=== PATIENT | male | born 1935 | race Caucasian/White ===

== ENCOUNTER 2017-04-25 11:49 | Inpatient (IN) | payer MEDICARE, BC ==
[~2017-04-25] VITALS: Ht 188 cm; Wt 103.9 kg
[2017-04-25] VITALS (7 sets, daily range): BP systolic 137–160; BP diastolic 50–64
[~2017-04-25 11:49] MED LIST: LIDOcaine 2% (20 mg/ml) 5ml cardiac syringe ONE; MAGNESIUM SULFATE 4 MEQ/ML (1gm/2ml) injection ONE; albumin (human) 25% 100 ML IV solution IV ONE; aminocaproic acid 250 MG/1 ML inj. ONE; calcium chloride 100 MG/1 ML inj IV ONE; heparin 1,000 units/ml 10ml inj ONE; heparin 10,000 units/1 ML INJ ONE; methylPREDNISolone sod. succ. 500mg inj ONE; papaverine 30 mg/ml 2ml inj. ONE; phenylephrine 10mg/ml inj IV ONE; potassium Cl 2 mEq/ml inj IV ONE; sodium bicarbonate (8.4%) 1 mEq/ml syringe ONE
[2017-04-25] MEDS ORDERED: dextrose 50%-water 50ml dispensing syringe IV PRN (13:00)
[2017-04-25] MEDS ORDERED: MESSAGE TO NURSING PO ONE ×4 (13:00)
[2017-04-25] MEDS ORDERED: heparin 10,000 units/1 ML INJ IV PRN (13:10)
[2017-04-25] MEDS ORDERED: heparin 10,000 units/1 ML INJ IV ONE (13:10)
[2017-04-25 13:56] LABS: ABG BASE EXCESS 0.1 mmol/L (-2.0-3.0); ABG HCO3 24.9 mmol/L (22.0-26.0); ABG OXYGEN SATURATION 98.1 % (95-98); ABG PCO2 (T) 39.6 mmHg (35.0-48.0); ABG PH (T) 7.413 (7.350-7.450); ALLEN'S TEST Positive; FCOHb 0.3 % (0.5-1.5); FLOW 3 L/min; FMetHb 0.1 % (0.3-1.12); FO2Hb 97.7 % (94-100); PATIENT TEMPERATURE 36.1; TOTAL HEMOGLOBIN 13.8 G/dl (14.0-18.0)
[2017-04-25] MEDS ORDERED: ALBU8.5H8 INH (13:59)
[2017-04-25] MEDS ORDERED: ASPI-1265 PO (13:59)
[2017-04-25] MEDS ORDERED: METO-411 PO (13:59)
[2017-04-25] MEDS ORDERED: SIMV20TA PO (13:59)
[2017-04-25] MEDS ORDERED: ALT5C PO (13:59)
[2017-04-25] MEDS ORDERED: ESOM40CA30 PO (13:59)
[2017-04-25] MEDS ORDERED: IBUP-1985 PO (13:59)
[2017-04-25] MEDS ORDERED: MOME17SP BOTHNARES (13:59)
[2017-04-25 14:29] LABS: BASOPHILS % (AUTO) 0.6 % (0-1); EOSINOPHILS # (AUTO) 0.2 X10'3 (0-0.9); EOSINOPHILS % (AUTO) 6.4 % (0-6); HEMATOCRIT 39.7 % (42.0-52.0); HEMOGLOBIN 13.4 g/dl (14.0-17.9); LYMPHOCYTES # (AUTO) 0.9 X10'3 (1.1-4.8); LYMPHOCYTES % (AUTO) 25.6 % (21-51); MEAN CORPUSCULAR HEMOGLOBIN 28.4 PG (27.0-31.0); MEAN CORPUSCULAR HGB CONC 33.8 % (33.0-36.5); MEAN CORPUSCULAR VOLUME 83.9 FL (78-98); MEAN PLATELET VOLUME 8.9 FL (7.4-10.4); MONOCYTES # (AUTO) 0.6 X10'3 (0-0.9); MONOCYTES % (AUTO) 19.2 % (2-12); NEUTROPHILS # (AUTO) 1.6 X10'3 (1.8-7.7); NEUTROPHILS % (AUTO) 48.2 % (42-75); PLATELET COUNT 122 X10'3 (140-440); RED BLOOD COUNT 4.73 X10'6 (4.70-6.10); RED CELL DISTRIBUTION WIDTH 14.4 % (11.5-14.5); WHITE BLOOD COUNT 3.4 X10'3 (4.5-11.0)
[2017-04-25 14:36] LABS: ALBUMIN 3.4 G/DL (3.4-5.0); ANION GAP 7 (8-16); BLOOD UREA NITROGEN 14 MG/DL (7-18); BUN/CREATININE RATIO 15.6 (5.4-32.0); CALCIUM 8.5 MG/DL (8.5-10.1); CHLORIDE 106 MMOL/L (99-107); GLUCOSE 85 MG/DL (70-104); POTASSIUM 4.4 MMOL/L (3.5-5.1); SODIUM 143 MMOL/L (135-145); TOTAL CARBON DIOXIDE 30.4 MMOL/L (24-32); eGFR 81 ML/MIN
[2017-04-25 14:42] LABS: HEMOGLOBIN A1C 5.3 % (4.5-6.2)
[2017-04-25 14:47] LABS: INR 1.2 INR
[2017-04-25 14:51] LABS: PARTIAL THROMBOPLASTIN TIME 122 SECONDS (22-32)
[2017-04-25] MEDS ORDERED: albuterol 2.5 MG/3 ML nebule ONE (14:59)
[2017-04-25] MEDS ORDERED: albuterol 2.5 MG/3 ML nebule NEB ONE (15:05)
[2017-04-25] MEDS: mupirocin 2% ointment 22GM NS SCH (21:02)
[2017-04-26] VITALS (19 sets, daily range): BP systolic 105–167; BP diastolic 30–71
[2017-04-26 03:13] LABS: BASOPHILS % (AUTO) 0.6 % (0-1); EOSINOPHILS # (AUTO) 0.2 X10'3 (0-0.9); HEMATOCRIT 38.2 % (42.0-52.0); HEMOGLOBIN 13.2 g/dl (14.0-17.9); LYMPHOCYTES % (AUTO) 23.1 % (21-51); MEAN CORPUSCULAR HGB CONC 34.6 % (33.0-36.5); MEAN CORPUSCULAR VOLUME 83.8 FL (78-98); MEAN PLATELET VOLUME 8.5 FL (7.4-10.4); MONOCYTES # (AUTO) 0.6 X10'3 (0-0.9); NEUTROPHILS # (AUTO) 2.4 X10'3 (1.8-7.7); NEUTROPHILS % (AUTO) 56.3 % (42-75); PLATELET COUNT 117 X10'3 (140-440); RED BLOOD COUNT 4.56 X10'6 (4.70-6.10); RED CELL DISTRIBUTION WIDTH 13.5 % (11.5-14.5); WHITE BLOOD COUNT 4.3 X10'3 (4.5-11.0)
[2017-04-26] MEDS ORDERED: cefazolin/dext.iso 2gm/50ml 50 ML IV ONE (05:30)
[2017-04-26] MEDS ORDERED: LORazepam 2 mg/ml vial IV ONE (05:30)
[2017-04-26] MEDS ORDERED: famotidine/PF 10 mg/ml inj IV ONE ×2 (05:30→07:10)
[2017-04-26] MEDS ORDERED: vancomycin/NS 1 GM ADD-VANTAGE 250 ML IV ONE (05:30)
[2017-04-26] MEDS: insulin Lispro (HumaLOG) vial - multi-dose SQ SCH ×4 (06:41→12:54)
[2017-04-26] MEDS ORDERED: BUPIVAcaine/PF 2.5 mg/ml (0.25%) 30ml vial ONE (07:00)
[2017-04-26] MEDS ORDERED: nitroGLYCERIN in D5W 50mg/250ml (Tridil) infusion IV ONE (07:00)
[2017-04-26] MEDS ORDERED: isoflurane 100ml inhalation liquid IH ONE (07:00)
[2017-04-26] MEDS ORDERED: SUFENTANIL CITRATE 50 MCG/ML 2ml ampule IV ONE (07:20)
[2017-04-26] MEDS ORDERED: LORazepam 2 mg/ml vial ONE (07:24)
[2017-04-26] MEDS ORDERED: propofol inj 20 ML IV ONE (07:25)
[2017-04-26] MEDS ORDERED: rocuronium 10mg/ml inj IV ONE ×3 (07:25→13:02)
[2017-04-26] MEDS ORDERED: heparin 10,000 units/1 ML INJ IR ONE (07:30)
[2017-04-26] MEDS ORDERED: papaverine 30 mg/ml 2ml inj. IA ONE (07:30)
[2017-04-26 08:25] LABS: ABG BASE EXCESS 1.5 mmol/L (-2.0-3.0); ABG OXYGEN SATURATION 92.2 % (95-98); ABG PCO2 40.7 mmHg (35.0-45.0); ABG PH 7.423 (7.350-7.450); CL (ABG) 105 mmol/L (99-107); FCOHb 0.3 % (0.5-1.5); FMetHb 0.3 % (0.3-1.12); FO2Hb 91.6 % (94-100); GLUCOSE (ABG) 92 mg/dl (70-105); K (ABG) 3.5 mmol/L (3.3-5.1); NA (ABG) 135 mmol/L (135-145); TOTAL HEMOGLOBIN 12.2 G/dl (14.0-18.0)
[2017-04-26 09:20] LABS: ABG BASE EXCESS 0.4 mmol/L (-2.0-3.0); ABG HCO3 24.7 mmol/L (22.0-26.0); ABG OXYGEN SATURATION 99.5 % (95-98); ABG PCO2 38.9 mmHg (35.0-45.0); ABG PH 7.421 (7.350-7.450); ABG PO2 327.8 mmHg (60.0-100.0); CL (ABG) 105 mmol/L (99-107); FCOHb 0.3 % (0.5-1.5); FMetHb 0.1 % (0.3-1.12); FO2Hb 99.1 % (94-100); GLUCOSE (ABG) 98 mg/dl (70-105); IONIZED CA (ABG) 1.09 mmol/L (1.03-1.32); K (ABG) 3.7 mmol/L (3.3-5.1); NA (ABG) 135 mmol/L (135-145); TOTAL HEMOGLOBIN 11.8 G/dl (14.0-18.0)
[2017-04-26 09:51] LABS: ABG BASE EXCESS 2.5 mmol/L (-2.0-3.0); ABG HCO3 27.2 mmol/L (22.0-26.0); ABG PCO2 42.8 mmHg (35.0-45.0); ABG PH 7.421 (7.350-7.450); ABG PO2 365.4 mmHg (60.0-100.0); CL (ABG) 106 mmol/L (99-107); FCOHb 0.2 % (0.5-1.5); FMetHb 0.6 % (0.3-1.12); FO2Hb 98.2 % (94-100); GLUCOSE (ABG) 96 mg/dl (70-105); IONIZED CA (ABG) 1.01 mmol/L (1.03-1.32); K (ABG) 4.9 mmol/L (3.3-5.1); NA (ABG) 134 mmol/L (135-145); TOTAL HEMOGLOBIN 9.8 G/dl (14.0-18.0)
[2017-04-26] MEDS ORDERED: MESSAGE TO NURSING PO ONE (10:00)
[2017-04-26 10:16] LABS: ABG BASE EXCESS VENOUS 1.3 mmol/L; ABG HCO3 VENOUS 26.6 mmol/L; ABG PCO2 VENOUS 45.2 mmHg; ABG PO2 VENOUS 52.4 mmHg; CL (ABG) 106 mmol/L (99-107); FCOHb VENOUS 0.3 %; FHHb VENOUS 12.3 %; FMetHb VENOUS 0.5 %; FO2Hb VENOUS 86.9 %; GLUCOSE (ABG) 124 mg/dl (70-105); IONIZED CA (ABG) 1.03 mmol/L (1.03-1.32); K (ABG) 4.6 mmol/L (3.3-5.1); NA (ABG) 135 mmol/L (135-145); TOTAL HEMOGLOBIN 10.4 G/dl (14.0-18.0)
[2017-04-26 10:21] LABS: ACT @ 1.70 U 313 SEC (193-297); ACT @ 2.84 U 462 SEC (260-420); BASELINE ACT 153 SEC (101-148); PATIENT WEIGHT 95.0k KG
[2017-04-26 11:11] LABS: ABG BASE EXCESS -2.2 mmol/L (-2.0-3.0); ABG HCO3 21.6 mmol/L (22.0-26.0); ABG PCO2 33.7 mmHg (35.0-45.0); ABG PH 7.425 (7.350-7.450); ABG PO2 240.7 mmHg (60.0-100.0); CL (ABG) 107 mmol/L (99-107); FCOHb 0.3 % (0.5-1.5); FMetHb 0.6 % (0.3-1.12); FO2Hb 98.1 % (94-100); GLUCOSE (ABG) 134 mg/dl (70-105); IONIZED CA (ABG) 1.06 mmol/L (1.03-1.32); K (ABG) 4.8 mmol/L (3.3-5.1); NA (ABG) 135 mmol/L (135-145); TOTAL HEMOGLOBIN 10.3 G/dl (14.0-18.0)
[2017-04-26 11:25] LABS: ABG BASE EXCESS -2.9 mmol/L (-2.0-3.0); ABG PCO2 38.6 mmHg (35.0-45.0); ABG PH 7.374 (7.350-7.450); ABG PO2 312.6 mmHg (60.0-100.0); CL (ABG) 104 mmol/L (99-107); FCOHb 0.3 % (0.5-1.5); FMetHb 0.8 % (0.3-1.12); FO2Hb 97.9 % (94-100); GLUCOSE (ABG) 124 mg/dl (70-105); IONIZED CA (ABG) 1.39 mmol/L (1.03-1.32); K (ABG) 4.8 mmol/L (3.3-5.1); NA (ABG) 132 mmol/L (135-145); TOTAL HEMOGLOBIN 9.6 G/dl (14.0-18.0)
[2017-04-26 12:16] LABS: ABG BASE EXCESS -1.9 mmol/L (-2.0-3.0); ABG HCO3 21.8 mmol/L (22.0-26.0); ABG OXYGEN SATURATION 98.4 % (95-98); ABG PCO2 33.3 mmHg (35.0-45.0); ABG PH 7.433 (7.350-7.450); ABG PO2 160.6 mmHg (60.0-100.0); CL (ABG) 107 mmol/L (99-107); FCOHb 0.3 % (0.5-1.5); FMetHb 0.7 % (0.3-1.12); FO2Hb 97.4 % (94-100); GLUCOSE (ABG) 122 mg/dl (70-105); IONIZED CA (ABG) 1.17 mmol/L (1.03-1.32); K (ABG) 4.2 mmol/L (3.3-5.1); NA (ABG) 136 mmol/L (135-145); TOTAL HEMOGLOBIN 10.7 G/dl (14.0-18.0)
[2017-04-26] MEDS: mupirocin 2% ointment 22GM NS SCH ×3 (12:30→19:28)
[2017-04-26] MEDS: insulin regular, human inj. 100 UNITS in normal saline 100ml IV soln 100 ML IV SCH ×2 (12:30)
[2017-04-26] MEDS ORDERED: niCARDipine/sod cl 20mg/200ml 200 ML IV PRN (13:05)
[2017-04-26] MEDS ORDERED: sodium phosphate inj. 15 MMOL in dextrose 5%-water 150 ML IV PRN (13:05)
[2017-04-26] MEDS ORDERED: magnesium 2GM in 50ml NS 50 ML IV PRN (13:05)
[2017-04-26] MEDS ORDERED: sodium phosphate inj. 30 MMOL in dextrose 5%-water 250 ML IV PRN (13:05)
[2017-04-26] MEDS ORDERED: potassium Cl 20mEq/100mL bag 100 ML IV PRN ×2 (13:05)
[2017-04-26] MEDS ORDERED: Neutra Phos packet PO PRN (13:05)
[2017-04-26] MEDS ORDERED: insulin regular, human inj. 100 UNITS in normal saline 100ml IV soln 100 ML IV SCH ×2 (13:05)
[2017-04-26] MEDS ORDERED: dextrose 50%-water 50ml dispensing syringe IV PRN (13:05)
[2017-04-26] MEDS ORDERED: HYDROcodone/acetaminophen 10/325mg tab PO PRN (13:05)
[2017-04-26] MEDS ORDERED: nitroGLYCERIN-Tridil 50MG/D5W 250 ML IV PRN (13:05)
[2017-04-26] MEDS ORDERED: magnesium hydroxide 30ml (MOM) UD suspension PO PRN (13:05)
[2017-04-26] MEDS ORDERED: DOPamine 400mg/D5W 250ml 250 ML IV PRN (13:05)
[2017-04-26] MEDS ORDERED: metoclopramide 5 mg/ml inj IV PRN (13:05)
[2017-04-26] MEDS ORDERED: normal saline 250ml IV soln 250 ML IV PRN (13:05)
[2017-04-26] MEDS ORDERED: ondansetron/PF 4mg/2ml inj IV PRN (13:05)
[2017-04-26] MEDS ORDERED: acetaminophen 325mg tablet PO PRN (13:05)
[2017-04-26 13:30] LABS: ABG BASE EXCESS -2.5 mmol/L (-2.0-3.0); ABG HCO3 22.3 mmol/L (22.0-26.0); ABG PCO2 (T) 37.7 mmHg (35.0-48.0); ABG PH (T) 7.387 (7.350-7.450); ABG PO2 (T) 126.8 mmHg (83-108); FCOHb 0.3 % (0.5-1.5); FMetHb 0.3 % (0.3-1.12); FO2Hb 97.4 % (94-100); MINUTE VOLUME 8 L/min; PATIENT TEMPERATURE 36.5; PEEP 5 cm H2O; RESPIRATORY RATE 12 b/min; RESPIRATORY RATE (OBSERVED) 12 b/min; TIDAL VOLUME 650 mL; TOTAL HEMOGLOBIN 12.1 G/dl (14.0-18.0)
[2017-04-26 13:49] LABS: BASOPHILS % (AUTO) 0.1 % (0-1); EOSINOPHILS # (AUTO) 0.1 X10'3 (0-0.9); EOSINOPHILS % (AUTO) 1.9 % (0-6); HEMATOCRIT 32.9 % (42.0-52.0); HEMOGLOBIN 11.2 g/dl (14.0-17.9); LYMPHOCYTES # (AUTO) 0.3 X10'3 (1.1-4.8); LYMPHOCYTES % (AUTO) 4.6 % (21-51); MEAN CORPUSCULAR HEMOGLOBIN 28.8 PG (27.0-31.0); MEAN CORPUSCULAR HGB CONC 34.1 % (33.0-36.5); MEAN CORPUSCULAR VOLUME 84.4 FL (78-98); MEAN PLATELET VOLUME 8.6 FL (7.4-10.4); MONOCYTES # (AUTO) 0.3 X10'3 (0-0.9); MONOCYTES % (AUTO) 3.6 % (2-12); NEUTROPHILS # (AUTO) 6.3 X10'3 (1.8-7.7); NEUTROPHILS % (AUTO) 89.8 % (42-75); PLATELET COUNT 87 X10'3 (140-440); RED BLOOD COUNT 3.89 X10'6 (4.70-6.10); RED CELL DISTRIBUTION WIDTH 13.8 % (11.5-14.5)
[2017-04-26 14:02] LABS: INR 1.2 INR; PARTIAL THROMBOPLASTIN TIME 30 SECONDS (22-32); PROTHROMBIN TIME 12.3 SECONDS (9.0-12.0)
[2017-04-26 14:06] LABS: ALANINE AMINOTRANSFERASE 20 U/L (12-78); ALBUMIN 2.7 G/DL (3.4-5.0); ALBUMIN/GLOBULIN RATIO 1.5 (1.1-1.5); ALKALINE PHOSPHATASE 32 IU/L (46-116); ANION GAP 10 (8-16); ASPARTATE AMINO TRANSFERASE 47 U/L (10-37); BLOOD UREA NITROGEN 14 MG/DL (7-18); BUN/CREATININE RATIO 16.5 (5.4-32.0); CALCIUM 7.8 MG/DL (8.5-10.1); CHLORIDE 108 MMOL/L (99-107); CREATININE 0.85 MG/DL (0.60-1.10); GLUCOSE 119 MG/DL (70-104); MAGNESIUM 2.8 MG/DL (1.5-2.4); PHOSPHORUS 3.1 MG/DL (2.3-4.5); POTASSIUM 4.1 MMOL/L (3.5-5.1); SODIUM 143 MMOL/L (135-145); TOTAL CARBON DIOXIDE 24.9 MMOL/L (24-32); TOTAL PROTEIN 4.5 G/DL (6.4-8.2); eGFR 87 ML/MIN
[2017-04-26] MEDS: sodium chloride 0.45% 1,000 ML IV SCH (14:10)
[2017-04-26] MEDS: albumin (Human) 5% 250ml 250 ML IV PRN ×3 (14:29→22:26)
[2017-04-26] MEDS: potassium Cl 20mEq/100mL bag 100 ML IV PRN ×2 (14:33→20:20)
[2017-04-26] MEDS: morphine 2 MG/ML inj. syringe IV PRN ×3 (14:37→17:36)
[2017-04-26 14:51] LABS: ACTIVATED CLOTTING TIME 147 SEC (101-148)
[2017-04-26] MEDS: cefazolin 1gm/NS 100mL 100 ML IV SCH (17:11)
[2017-04-26] MEDS ORDERED: insulin Lispro (HumaLOG) vial - multi-dose SQ SCH (18:00)
[2017-04-26 19:13] LABS: BASOPHILS % (AUTO) 0 % (0-1); EOSINOPHILS # (AUTO) 0.1 X10'3 (0-0.9); EOSINOPHILS % (AUTO) 1.2 % (0-6); HEMATOCRIT 30.3 % (42.0-52.0); HEMOGLOBIN 10.4 g/dl (14.0-17.9); LYMPHOCYTES # (AUTO) 0.2 X10'3 (1.1-4.8); LYMPHOCYTES % (AUTO) 2.9 % (21-51); MEAN CORPUSCULAR HEMOGLOBIN 28.7 PG (27.0-31.0); MEAN CORPUSCULAR HGB CONC 34.4 % (33.0-36.5); MEAN CORPUSCULAR VOLUME 83.4 FL (78-98); MONOCYTES # (AUTO) 0.3 X10'3 (0-0.9); MONOCYTES % (AUTO) 5.2 % (2-12); NEUTROPHILS % (AUTO) 90.7 % (42-75); PLATELET COUNT 87 X10'3 (140-440); RED BLOOD COUNT 3.63 X10'6 (4.70-6.10); RED CELL DISTRIBUTION WIDTH 13.9 % (11.5-14.5); WHITE BLOOD COUNT 6.6 X10'3 (4.5-11.0)
[2017-04-26] MEDS: docusate sod 100mg capsule PO SCH (19:21)
[2017-04-26 19:22] LABS: ALBUMIN 2.8 G/DL (3.4-5.0); ANION GAP 8 (8-16); BLOOD UREA NITROGEN 15 MG/DL (7-18); BUN/CREATININE RATIO 15.5 (5.4-32.0); CALCIUM 7.3 MG/DL (8.5-10.1); CHLORIDE 111 MMOL/L (99-107); CREATININE 0.97 MG/DL (0.60-1.10); GLUCOSE 137 MG/DL (70-104); POTASSIUM 4.3 MMOL/L (3.5-5.1); SODIUM 144 MMOL/L (135-145); TOTAL CARBON DIOXIDE 25.3 MMOL/L (24-32); eGFR 74 ML/MIN
[2017-04-26] MEDS: vancomycin/NS 1 GM ADD-VANTAGE 250 ML IV SCH (19:23)
[2017-04-26 23:55] LABS: ABG HCO3 19.4 mmol/L (22.0-26.0); ABG OXYGEN SATURATION 93.3 % (95-98); ABG PCO2 (T) 33.9 mmHg (35.0-48.0); ABG PH (T) 7.376 (7.350-7.450); ABG PO2 (T) 71.1 mmHg (83-108); FCOHb 0.3 % (0.5-1.5); FMetHb 0.2 % (0.3-1.12); FO2Hb 92.8 % (94-100); MINUTE VOLUME 9 L/min; PATIENT TEMPERATURE 37.1; PEEP 5 cm H2O; RESPIRATORY RATE 0 b/min; RESPIRATORY RATE (OBSERVED) 16 b/min; TIDAL VOLUME 608 mL
[2017-04-27] VITALS (24 sets, daily range): BP systolic 119–167; BP diastolic 40–64
[2017-04-27] MEDS: cefazolin 1gm/NS 100mL 100 ML IV SCH ×3 (00:09→16:17)
[2017-04-27] MEDS: morphine 2 MG/ML inj. syringe IV PRN ×2 (00:29→03:55)
[2017-04-27 03:17] LABS: BASOPHILS % (AUTO) 0 % (0-1); EOSINOPHILS # (AUTO) 0.1 X10'3 (0-0.9); HEMATOCRIT 28.6 % (42.0-52.0); HEMOGLOBIN 9.8 g/dl (14.0-17.9); LYMPHOCYTES # (AUTO) 0.2 X10'3 (1.1-4.8); MEAN CORPUSCULAR HGB CONC 34.2 % (33.0-36.5); MEAN CORPUSCULAR VOLUME 84.7 FL (78-98); MEAN PLATELET VOLUME 8.5 FL (7.4-10.4); MONOCYTES # (AUTO) 0.5 X10'3 (0-0.9); NEUTROPHILS # (AUTO) 6.8 X10'3 (1.8-7.7); PLATELET COUNT 91 X10'3 (140-440); RED BLOOD COUNT 3.38 X10'6 (4.70-6.10); RED CELL DISTRIBUTION WIDTH 14.3 % (11.5-14.5); WHITE BLOOD COUNT 7.7 X10'3 (4.5-11.0)
[2017-04-27 03:28] LABS: INR 1.1 INR; PARTIAL THROMBOPLASTIN TIME 29 SECONDS (22-32); PROTHROMBIN TIME 11.7 SECONDS (9.0-12.0)
[2017-04-27 03:31] LABS: ANION GAP 9 (8-16); CHLORIDE 110 MMOL/L (99-107); GLUCOSE 138 MG/DL (70-104); POTASSIUM 4.7 MMOL/L (3.5-5.1); SODIUM 143 MMOL/L (135-145); TOTAL CARBON DIOXIDE 24.2 MMOL/L (24-32)
[2017-04-27 03:32] LABS: ALANINE AMINOTRANSFERASE 21 U/L (12-78); ALBUMIN/GLOBULIN RATIO 1.7 (1.1-1.5); ALKALINE PHOSPHATASE 31 IU/L (46-116); ASPARTATE AMINO TRANSFERASE 42 U/L (10-37); BILIRUBIN,TOTAL 0.6 MG/DL (0.1-1.0); BLOOD UREA NITROGEN 16 MG/DL (7-18); BUN/CREATININE RATIO 17.4 (5.4-32.0); CALCIUM 7.6 MG/DL (8.5-10.1); CREATININE 0.92 MG/DL (0.60-1.10); MAGNESIUM 2.2 MG/DL (1.5-2.4); PHOSPHORUS 4.4 MG/DL (2.3-4.5); TOTAL PROTEIN 4.8 G/DL (6.4-8.2); eGFR 79 ML/MIN
[2017-04-27] MEDS ORDERED: albuterol 2.5 MG/3 ML nebule NEB PRN (05:20)
[2017-04-27] MEDS: insulin regular, human inj. 100 UNITS in normal saline 100ml IV soln 100 ML IV SCH ×2 (05:30)
[2017-04-27] MEDS ORDERED: famotidine 20mg tablet PO ONE (06:00)
[2017-04-27] MEDS ORDERED: aspirin 325mg tablet, delayed-release (Ecotrin) PO SCH (08:00)
[2017-04-27] MEDS: docusate sod 100mg capsule PO SCH ×2 (08:55→19:27)
[2017-04-27] MEDS: pantoprazole 40mg Tablet.DR PO SCH (08:55)
[2017-04-27] MEDS: atorvastatin 10mg tablet PO SCH (08:55)
[2017-04-27] MEDS: metoprolol tartrate 12.5mg (1/2 tablet) PO SCH ×2 (08:56→19:28)
[2017-04-27] MEDS: vancomycin/NS 1 GM ADD-VANTAGE 250 ML IV SCH ×2 (10:51→19:28)
[2017-04-27] MEDS: mupirocin 2% ointment 22GM NS SCH ×2 (10:56→19:28)
[2017-04-27] MEDS: aspirin 81mg tab.chew PO SCH (10:56)
[2017-04-27] MEDS: HYDROcodone/acetaminophen 10/325mg tab PO PRN ×2 (13:26→21:42)
[2017-04-27] MEDS: lactobacillus rhamnosus 10,000 MMU CELLS/CAPSULE PO SCH (17:30)
[2017-04-28] VITALS (24 sets, daily range): BP systolic 123–184; BP diastolic 44–71
[2017-04-28] MEDS: cefazolin 1gm/NS 100mL 100 ML IV SCH (00:33)
[2017-04-28] MEDS: sodium chloride 0.45% 1,000 ML IV SCH (04:56)
[2017-04-28] MEDS: HYDROcodone/acetaminophen 10/325mg tab PO PRN ×2 (04:59→17:05)
[2017-04-28 05:36] LABS: BASOPHILS % (AUTO) 0.1 % (0-1); EOSINOPHILS # (AUTO) 0.1 X10'3 (0-0.9); EOSINOPHILS % (AUTO) 0.8 % (0-6); HEMATOCRIT 27.4 % (42.0-52.0); HEMOGLOBIN 9.4 g/dl (14.0-17.9); LYMPHOCYTES # (AUTO) 0.7 X10'3 (1.1-4.8); LYMPHOCYTES % (AUTO) 7.8 % (21-51); MEAN CORPUSCULAR HEMOGLOBIN 28.9 PG (27.0-31.0); MEAN CORPUSCULAR HGB CONC 34.5 % (33.0-36.5); MEAN CORPUSCULAR VOLUME 83.9 FL (78-98); MEAN PLATELET VOLUME 8.4 FL (7.4-10.4); MONOCYTES % (AUTO) 10.4 % (2-12); NEUTROPHILS # (AUTO) 7.6 X10'3 (1.8-7.7); NEUTROPHILS % (AUTO) 80.9 % (42-75); PLATELET COUNT 93 X10'3 (140-440); RED BLOOD COUNT 3.27 X10'6 (4.70-6.10); WHITE BLOOD COUNT 9.4 X10'3 (4.5-11.0)
[2017-04-28 05:59] LABS: ALBUMIN 2.9 G/DL (3.4-5.0); ANION GAP 5 (8-16); BLOOD UREA NITROGEN 19 MG/DL (7-18); BUN/CREATININE RATIO 20.2 (5.4-32.0); CALCIUM 7.4 MG/DL (8.5-10.1); CHLORIDE 107 MMOL/L (99-107); CREATININE 0.94 MG/DL (0.60-1.10); GLUCOSE 102 MG/DL (70-104); MAGNESIUM 1.8 MG/DL (1.5-2.4); PHOSPHORUS 2.4 MG/DL (2.3-4.5); POTASSIUM 4.3 MMOL/L (3.5-5.1); SODIUM 140 MMOL/L (135-145); TOTAL CARBON DIOXIDE 27.6 MMOL/L (24-32); eGFR 77 ML/MIN
[2017-04-28] MEDS ORDERED: aspirin 81mg tab.chew PO SCH (08:00)
[2017-04-28] MEDS: pantoprazole 40mg Tablet.DR PO SCH (08:15)
[2017-04-28] MEDS: atorvastatin 10mg tablet PO SCH (08:15)
[2017-04-28] MEDS: lactobacillus rhamnosus 10,000 MMU CELLS/CAPSULE PO SCH ×2 (08:15→17:08)
[2017-04-28] MEDS: mupirocin 2% ointment 22GM NS SCH (08:15)
[2017-04-28] MEDS: docusate sod 100mg capsule PO SCH ×2 (08:15→19:45)
[2017-04-28] MEDS: aspirin 81mg tab.chew PO SCH (08:15)
[2017-04-28] MEDS: metoprolol tartrate 12.5mg (1/2 tablet) PO SCH ×3 (08:15→19:47)
[2017-04-28] MEDS: potassium Cl 20mEq/100mL bag 100 ML IV PRN (08:17)
[2017-04-28] MEDS: magnesium 4gm in 100ml NS 100 ML IV PRN (08:19)
[2017-04-29] VITALS (18 sets, daily range): BP systolic 121–181; BP diastolic 44–85
[2017-04-29 03:38] LABS: BASOPHILS % (AUTO) 0 % (0-1); EOSINOPHILS # (AUTO) 0.1 X10'3 (0-0.9); EOSINOPHILS % (AUTO) 1.4 % (0-6); HEMOGLOBIN 8.9 g/dl (14.0-17.9); LYMPHOCYTES # (AUTO) 0.9 X10'3 (1.1-4.8); LYMPHOCYTES % (AUTO) 11.5 % (21-51); MEAN CORPUSCULAR HEMOGLOBIN 28.6 PG (27.0-31.0); MEAN CORPUSCULAR HGB CONC 34.2 % (33.0-36.5); MEAN CORPUSCULAR VOLUME 83.8 FL (78-98); MEAN PLATELET VOLUME 8.9 FL (7.4-10.4); MONOCYTES # (AUTO) 0.8 X10'3 (0-0.9); MONOCYTES % (AUTO) 11.2 % (2-12); NEUTROPHILS # (AUTO) 5.7 X10'3 (1.8-7.7); NEUTROPHILS % (AUTO) 75.9 % (42-75); PLATELET COUNT 91 X10'3 (140-440); RED CELL DISTRIBUTION WIDTH 13.9 % (11.5-14.5); WHITE BLOOD COUNT 7.5 X10'3 (4.5-11.0)
[2017-04-29 03:58] LABS: ANION GAP 5 (8-16); BLOOD UREA NITROGEN 18 MG/DL (7-18); BUN/CREATININE RATIO 25.7 (5.4-32.0); CALCIUM 7.7 MG/DL (8.5-10.1); CHLORIDE 105 MMOL/L (99-107); GLUCOSE 95 MG/DL (70-104); MAGNESIUM 1.8 MG/DL (1.5-2.4); PHOSPHORUS 2.5 MG/DL (2.3-4.5); POTASSIUM 4.1 MMOL/L (3.5-5.1); SODIUM 140 MMOL/L (135-145); TOTAL CARBON DIOXIDE 29.9 MMOL/L (24-32); eGFR > 90 ML/MIN
[2017-04-29 03:59] LABS: ALBUMIN 2.6 G/DL (3.4-5.0)
[2017-04-29] MEDS: sodium chloride 0.45% 1,000 ML IV SCH (04:14)
[2017-04-29] MEDS: potassium Cl 20mEq/100mL bag 100 ML IV PRN (04:14)
[2017-04-29] MEDS: magnesium 4gm in 100ml NS 100 ML IV PRN (05:34)
[2017-04-29] MEDS: HYDROcodone/acetaminophen 10/325mg tab PO PRN (05:37)
[2017-04-29] MEDS: docusate sod 100mg capsule PO SCH ×2 (07:39→19:01)
[2017-04-29] MEDS: atorvastatin 10mg tablet PO SCH (07:40)
[2017-04-29] MEDS: aspirin 81mg tab.chew PO SCH (07:40)
[2017-04-29] MEDS: pantoprazole 40mg Tablet.DR PO SCH (07:40)
[2017-04-29] MEDS: lactobacillus rhamnosus 10,000 MMU CELLS/CAPSULE PO SCH ×2 (07:40→16:59)
[2017-04-29] MEDS: metoprolol tartrate 12.5mg (1/2 tablet) PO SCH ×2 (07:42→08:35)
[2017-04-29] MEDS ORDERED: furosemide 20 MG/2 ML vial IV ONE (07:55)
[2017-04-29] MEDS ORDERED: potassium Cl 20 mEq SR tablet PO PRN ×2 (08:05)
[2017-04-29] MEDS ORDERED: magnesium 2GM in 50ml NS 50 ML IV PRN (08:05)
[2017-04-29] MEDS ORDERED: magnesium 4gm in 100ml NS 100 ML IV PRN (08:05)
[2017-04-29] MEDS ORDERED: magnesium Cl slow-release 64mg tablet PO PRN (08:05)
[2017-04-29] MEDS ORDERED: potassium Cl 40MEQ/NS 500ml 500 ML IV PRN ×2 (08:05)
[2017-04-29] MEDS: magnesium Cl slow-release 64mg tablet PO SCH (19:01)
[2017-04-29] MEDS: metoprolol tartrate 25mg tablet PO SCH (19:01)
[2017-04-29] MEDS: potassium Cl 20 mEq SR tablet PO SCH (19:02)
[2017-04-30 03:00] VITALS: BP 122/46
[2017-04-30] MEDS: HYDROcodone/acetaminophen 10/325mg tab PO PRN (03:05)
[2017-04-30 06:00] VITALS: BP 154/103
[2017-04-30 06:40] LABS: BASOPHILS % (AUTO) 0.1 % (0-1); EOSINOPHILS # (AUTO) 0.2 X10'3 (0-0.9); EOSINOPHILS % (AUTO) 3.3 % (0-6); HEMATOCRIT 27.9 % (42.0-52.0); HEMOGLOBIN 9.6 g/dl (14.0-17.9); LYMPHOCYTES # (AUTO) 1.1 X10'3 (1.1-4.8); LYMPHOCYTES % (AUTO) 15.6 % (21-51); MEAN CORPUSCULAR HGB CONC 34.3 % (33.0-36.5); MEAN CORPUSCULAR VOLUME 84.4 FL (78-98); MEAN PLATELET VOLUME 8.3 FL (7.4-10.4); MONOCYTES # (AUTO) 0.8 X10'3 (0-0.9); MONOCYTES % (AUTO) 11.1 % (2-12); NEUTROPHILS # (AUTO) 4.7 X10'3 (1.8-7.7); NEUTROPHILS % (AUTO) 69.9 % (42-75); PLATELET COUNT 118 X10'3 (140-440); RED BLOOD COUNT 3.31 X10'6 (4.70-6.10); RED CELL DISTRIBUTION WIDTH 13.6 % (11.5-14.5); WHITE BLOOD COUNT 6.8 X10'3 (4.5-11.0)
[2017-04-30 06:47] LABS: ALBUMIN 2.6 G/DL (3.4-5.0); ANION GAP 6 (8-16); BLOOD UREA NITROGEN 16 MG/DL (7-18); BUN/CREATININE RATIO 24.2 (5.4-32.0); CALCIUM 8.1 MG/DL (8.5-10.1); CHLORIDE 104 MMOL/L (99-107); CREATININE 0.66 MG/DL (0.60-1.10); GLUCOSE 90 MG/DL (70-104); MAGNESIUM 1.8 MG/DL (1.5-2.4); POTASSIUM 3.8 MMOL/L (3.5-5.1); SODIUM 140 MMOL/L (135-145); eGFR > 90 ML/MIN
[2017-04-30] MEDS: lactobacillus rhamnosus 10,000 MMU CELLS/CAPSULE PO SCH (07:13)
[2017-04-30] MEDS: pantoprazole 40mg Tablet.DR PO SCH (07:13)
[2017-04-30] MEDS: docusate sod 100mg capsule PO SCH (07:55)
[2017-04-30] MEDS: atorvastatin 10mg tablet PO SCH (07:55)
[2017-04-30] MEDS: aspirin 81mg tab.chew PO SCH (07:55)
[2017-04-30] MEDS ORDERED: K and/or MAG REPLACEMENT MC SCH (08:00)
[2017-04-30] MEDS: metoprolol tartrate 25mg tablet PO SCH (08:01)
[2017-04-30] MEDS: magnesium Cl slow-release 64mg tablet PO SCH (08:05)
[2017-04-30] MEDS: potassium Cl 20 mEq SR tablet PO SCH (08:05)
[2017-04-30 11:00] VITALS: BP 143/48
[2017-04-30 15:00] VITALS: BP 158/52
== END 2017-04-30 16:21 | DRG 236 ==
LOC: ICU 2S 12:43 → PCU 3S 04-29 13:55
PROVIDERS: ADMIT Thoracic Surgery (Cardiothoracic Vascular Surgery); ATTEND Thoracic Surgery (Cardiothoracic Vascular Surgery)
PROC: 021209W Bypass Coronary Artery, Three Arteries from Aorta with Autologous Venous Tissue, Open Approach (ICD-10-PCS; 2017-04-26)
PROC: 06BP4ZZ Excision of Right Saphenous Vein, Percutaneous Endoscopic Approach (ICD-10-PCS; 2017-04-26)
PROC: 5A1221Z Performance of Cardiac Output, Continuous (ICD-10-PCS; 2017-04-26)
PROC: B24BZZ4 Ultrasonography of Heart with Aorta, Transesophageal (ICD-10-PCS; 2017-04-26)
PROC: 02HV33Z Insertion of Infusion Device into Superior Vena Cava, Percutaneous Approach (ICD-10-PCS; 2017-04-26)
PROC: 02HP32Z Insertion of Monitoring Device into Pulmonary Trunk, Percutaneous Approach (ICD-10-PCS; 2017-04-26)
PROC: 4A133B3 Monitoring of Arterial Pressure, Pulmonary, Percutaneous Approach (ICD-10-PCS; 2017-04-26)
PROC: 4A1239Z Monitoring of Cardiac Output, Percutaneous Approach (ICD-10-PCS; 2017-04-26)
PROC: 02100Z9 Bypass Coronary Artery, One Artery from Left Internal Mammary, Open Approach (ICD-10-PCS; principal; 2017-04-26 07:02)
DX: I25.10 Atherosclerotic heart disease of native coronary artery without angina pectoris (principal); E78.5 Hyperlipidemia, unspecified; I10 Essential (primary) hypertension; K21.9 Gastro-esophageal reflux disease without esophagitis; I25.2 Old myocardial infarction; Z87.891 Personal history of nicotine dependence
CPT/HCPCS: 0232T; 93312; 93325; 36415; 36600; 71045; 71046; 80048; 80053; 82330; 82435; 82803; 82947; 82948; 83036; 83735; 84100; 84132; 84295; 85018; 85025; 85347; 85384; 85610; 85730; 86885; 86900; 86901; 86920; 87070; 93005; 93880; 93971; 94002; 94060; 94150; 94640; 94760; 97116; 97162; 97530; A6212; A6255; A6257; A6258; A6402; A6449; A7000; A7048; C1751; J0690; J1265; J1644; J1815; J1940; J2001; J2060; J2270; J2370; J2440; J2704; J2930; J3370; J3475; J3480; J3490; J7030; J7120; P9045; P9047

== ENCOUNTER 2019-04-30 02:38 | Emergency (ER) | payer MEDICARE, BC ==
[~2019-04-30] VITALS: Ht 188 cm; Wt 100.0 kg
[~2019-04-30 02:38] MED LIST changes: +ALBU8.5H8 INH; +ASPI-1265 PO; +CHOL100046 PO; +ESOM40CA49 PO; +IBUP-1985 PO; -LIDOcaine 2% (20 mg/ml) 5ml cardiac syringe ONE; -MAGNESIUM SULFATE 4 MEQ/ML (1gm/2ml) injection ONE; +METO-411 PO; +MOME17SP BOTHNARES; +SIMV20TA PO; -albumin (human) 25% 100 ML IV solution IV ONE; -aminocaproic acid 250 MG/1 ML inj. ONE; -calcium chloride 100 MG/1 ML inj IV ONE; -heparin 1,000 units/ml 10ml inj ONE; -heparin 10,000 units/1 ML INJ ONE; -methylPREDNISolone sod. succ. 500mg inj ONE; -papaverine 30 mg/ml 2ml inj. ONE; -phenylephrine 10mg/ml inj IV ONE; -potassium Cl 2 mEq/ml inj IV ONE; -sodium bicarbonate (8.4%) 1 mEq/ml syringe ONE
[2019-04-30] MEDS ORDERED: predniSONE 20 mg tablet PO ONE (04:05)
[2019-04-30 05:00] LABS: ABG OXYGEN SATURATION 94.5 % (95-98); ABG PCO2 (T) 38.1 mmHg (35.0-45.0); ABG PH (T) 7.451 (7.350-7.450); ALLEN'S TEST POSITIVE; FCOHb 0.7 % (0.5-1.5); FMetHb 0.1 % (0.3-1.12); FO2Hb 93.7 % (94-100); PATIENT TEMPERATURE 36.9; TOTAL HEMOGLOBIN 13.9 G/dl (14.0-17.9)
[2019-04-30 05:05] LABS: BASOPHILS # (AUTO) 0.1 X10'3 (0-0.2); BASOPHILS % (AUTO) 0.6 % (0-1); EOSINOPHILS # (AUTO) 0.4 X10'3 (0-0.9); EOSINOPHILS % (AUTO) 4.1 % (0-6); HEMATOCRIT 40.3 % (42.0-52.0); HEMOGLOBIN 13.7 g/dl (14.0-17.9); LYMPHOCYTES # (AUTO) 1.5 X10'3 (1.1-4.8); LYMPHOCYTES % (AUTO) 15.4 % (21-51); MEAN CORPUSCULAR HEMOGLOBIN 29.1 PG (27.0-31.0); MEAN CORPUSCULAR HGB CONC 33.9 g/dL (33.0-36.5); MEAN CORPUSCULAR VOLUME 85.8 FL (78-98); MEAN PLATELET VOLUME 8.7 FL (7.4-10.4); MONOCYTES # (AUTO) 1.2 X10'3 (0-0.9); MONOCYTES % (AUTO) 12.3 % (2-12); NEUTROPHILS # (AUTO) 6.5 X10'3 (1.8-7.7); NEUTROPHILS % (AUTO) 67.6 % (42-75); PLATELET COUNT 168 X10'3 (140-440); RED CELL DISTRIBUTION WIDTH 13.8 % (11.5-14.5); WHITE BLOOD COUNT 9.7 X10'3 (4.5-11.0)
[2019-04-30 05:19] LABS: ALANINE AMINOTRANSFERASE 13 U/L (12-78); ALBUMIN 3.8 G/DL (3.4-5.0); ALBUMIN/GLOBULIN RATIO 1.3 (1.1-1.5); ALKALINE PHOSPHATASE 56 IU/L (46-116); ANION GAP 8 (8-16); ASPARTATE AMINO TRANSFERASE 16 U/L (10-37); BILIRUBIN,TOTAL 1.1 MG/DL (0.1-1.0); BLOOD UREA NITROGEN 17 MG/DL (7-18); BUN/CREATININE RATIO 20.2 (5.4-32.0); CHLORIDE 106 MMOL/L (99-107); CREATININE 0.84 MG/DL (0.60-1.10); GLUCOSE 93 MG/DL (70-104); SODIUM 141 MMOL/L (135-145); TOTAL CARBON DIOXIDE 27.4 MMOL/L (24-32); TOTAL PROTEIN 6.8 G/DL (6.4-8.2); eGFR 87 ML/MIN
[2019-04-30 05:45] VITALS: BP 148/51
[2019-04-30] MEDS ORDERED: AZIT250T81 PO (05:59)
[2019-04-30] MEDS ORDERED: PRED20TA PO (05:59)
== END 2019-04-30 06:09 | disposition home or self-care (01) ==
LOC: ER 02:38
DX: J20.9 Acute bronchitis, unspecified (principal); E78.00 Pure hypercholesterolemia, unspecified; I10 Essential (primary) hypertension; Z87.891 Personal history of nicotine dependence; Z79.82 Long term (current) use of aspirin; Z79.899 Other long term (current) drug therapy
CPT/HCPCS: 36415; 36600; 71045; 80053; 82803; 83605; 84145; 85018; 85025; 87040; 87502; 87503; 93005; 99285; J7512

== ENCOUNTER 2020-01-12 11:01 | Day surgery (SDC) | payer MEDICARE, BC ==
[2020-01-08 10:52] LABS: BASOPHILS # (AUTO) 0.1 X10'3 (0-0.2); BASOPHILS % (AUTO) 0.7 % (0-1); EOSINOPHILS # (AUTO) 0.4 X10'3 (0-0.9); EOSINOPHILS % (AUTO) 5.5 % (0-6); HEMATOCRIT 41.6 % (42.0-52.0); LYMPHOCYTES # (AUTO) 1.5 X10'3 (1.1-4.8); LYMPHOCYTES % (AUTO) 20.3 % (21-51); MEAN CORPUSCULAR HEMOGLOBIN 29.9 PG (27.0-31.0); MEAN CORPUSCULAR HGB CONC 33.7 g/dL (33.0-36.5); MEAN CORPUSCULAR VOLUME 88.6 FL (78-98); MEAN PLATELET VOLUME 8.1 FL (7.4-10.4); MONOCYTES # (AUTO) 0.7 X10'3 (0-0.9); MONOCYTES % (AUTO) 9.8 % (2-12); NEUTROPHILS # (AUTO) 4.7 X10'3 (1.8-7.7); NEUTROPHILS % (AUTO) 63.7 % (42-75); PLATELET COUNT 169 X10'3 (140-440); RED BLOOD COUNT 4.69 X10'6 (4.70-6.10); RED CELL DISTRIBUTION WIDTH 13.6 % (11.5-14.5); WHITE BLOOD COUNT 7.4 X10'3 (4.5-11.0)
[2020-01-08 11:04] LABS: PARTIAL THROMBOPLASTIN TIME 27 SECONDS (22-32)
[2020-01-08 11:06] LABS: ALBUMIN 3.9 G/DL (3.4-5.0); ANION GAP 7 (8-16); BLOOD UREA NITROGEN 32 MG/DL (7-18); BUN/CREATININE RATIO 24.8 (5.4-32.0); CALCIUM 9.4 MG/DL (8.5-10.1); CHLORIDE 105 MMOL/L (99-107); CREATININE 1.29 MG/DL (0.60-1.10); GLUCOSE 77 MG/DL (70-104); POTASSIUM 3.8 MMOL/L (3.5-5.1); SODIUM 142 MMOL/L (135-145); TOTAL CARBON DIOXIDE 30.3 MMOL/L (24-32); eGFR 53 ML/MIN
[2020-01-12] VITALS (9 sets, daily range): BP systolic 99–146; BP diastolic 33–46
[~2020-01-12] VITALS: Ht 188 cm; Wt 98.9 kg
[~2020-01-12 11:01] MED LIST changes: -IBUP-1985 PO; +LISI-600 PO; +METO-384 PO; -METO-411 PO
[2020-01-12] MEDS ORDERED: normal saline 1,000 ML IV SCH (11:20)
[2020-01-12] MEDS ORDERED: diphenhydrAMINE 25mg capsule PO PRN (11:20)
[2020-01-12] MEDS ORDERED: LORazepam 0.5 MG tablet PO PRN (11:20)
[2020-01-12] MEDS ORDERED: NITR0.4T51 SL (11:28)
[2020-01-12] MEDS ORDERED: LISI1TAB29 PO (11:28)
[2020-01-12] MEDS ORDERED: FURO-150 PO (11:28)
[2020-01-12] MEDS ORDERED: verapamil 2.5 mg/ml inj IV ONE (11:50)
[2020-01-12] MEDS ORDERED: nitroGLYCERIN-Tridil 50MG/D5W 250 ML IV ONE (11:50)
[2020-01-12] MEDS ORDERED: fentaNYL/PF 50MCG/1 ML 2ML syringe ONE (11:51)
[2020-01-12] MEDS ORDERED: iohexol 350MG/ML 100ml bottle IV ONE ×2 (11:51→12:46)
[2020-01-12] MEDS ORDERED: LIDOcaine 1% (10mg/ml)w/preservative injection 20ml MDV ONE (11:51)
[2020-01-12] MEDS ORDERED: midazolam 2 mg/2 ml injection ONE (11:51)
[2020-01-12] MEDS ORDERED: heparin 1,000unit/ml 10ml vial 10 ML ONE (11:51)
[2020-01-12] MEDS ORDERED: proCHLORperazine 10 MG/2 ml inj IV PRN (13:30)
[2020-01-12] MEDS ORDERED: ondansetron/PF 4mg/2ml inj IV PRN (13:30)
[2020-01-12] MEDS ORDERED: HYDROcodone/acetaminophen 5mg/325mg tablet PO PRN (13:30)
[2020-01-12] MEDS ORDERED: OXAZEpam 15mg capsule PO PRN (13:30)
[2020-01-12] MEDS ORDERED: HYDROcodone/acetaminophen 10/325mg tab PO PRN (13:30)
== END 2020-01-12 16:07 | disposition home or self-care (01) ==
LOC: SSTAY O 11:01
PROVIDERS: ATTEND Student in an Organized Health Care Education/Training Program
DX: R94.39 Abnormal result of other cardiovascular function study (principal); I25.10 Atherosclerotic heart disease of native coronary artery without angina pectoris; I25.82 Chronic total occlusion of coronary artery; E78.5 Hyperlipidemia, unspecified; I11.0 Hypertensive heart disease with heart failure; I50.43 Acute on chronic combined systolic (congestive) and diastolic (congestive) heart failure; I25.2 Old myocardial infarction; Z88.8 Allergy status to other drugs, medicaments and biological substances; I35.1 Nonrheumatic aortic (valve) insufficiency; I34.0 Nonrheumatic mitral (valve) insufficiency; Z95.1 Presence of aortocoronary bypass graft; Z79.899 Other long term (current) drug therapy; Z79.82 Long term (current) use of aspirin; Z87.891 Personal history of nicotine dependence
CPT/HCPCS: 36415; 80048; 85025; 85610; 85730; 93005; 93459; 99152; 99153; C1760; C1769; C1894; J1644; J2001; J2250; J3010; J7030; Q0163; Q9967; 93458; A4620; A6258; J3490

== ENCOUNTER 2022-02-13 09:16 | Emergency (ER) | payer MEDICARE, BC ==
[~2022-02-13] VITALS: Ht 188 cm; Wt 103.4 kg
[~2022-02-13 09:16] MED LIST changes: +ALBU8.5H17 INH; -ALBU8.5H8 INH; +FURO-150 PO; -LISI-600 PO; +LISI1TAB53 PO; -MOME17SP BOTHNARES; +MOME17SP5 BOTHNARES; +NITR0.4T51 SL; +SIMV-342 PO; -SIMV20TA PO
[2022-02-13 10:01] LABS: BASOPHILS % (AUTO) 0.4 % (0-1); EOSINOPHILS % (AUTO) 0.2 % (0-6); HEMATOCRIT 39.3 % (42.0-52.0); LYMPHOCYTES # (AUTO) 0.5 X10'3 (1.1-4.8); LYMPHOCYTES % (AUTO) 6.7 % (21-51); MEAN CORPUSCULAR HEMOGLOBIN 28.6 PG (27.0-31.0); MEAN CORPUSCULAR VOLUME 86.7 FL (78-98); MONOCYTES # (AUTO) 0.3 X10'3 (0-0.9); MONOCYTES % (AUTO) 4.1 % (2-12); NEUTROPHILS # (AUTO) 6.4 X10'3 (1.8-7.7); NEUTROPHILS % (AUTO) 88.6 % (42-75); PLATELET COUNT 140 X10'3 (140-440); RED BLOOD COUNT 4.53 X10'6 (4.70-6.10); WHITE BLOOD COUNT 7.2 X10'3 (4.5-11.0)
[2022-02-13] MEDS ORDERED: normal saline 1000ML IV soln IVB ONE (10:20)
[2022-02-13] MEDS ORDERED: ondansetron/PF 4mg/2ml inj IV ONE (10:20)
[2022-02-13 10:26] LABS: ALANINE AMINOTRANSFERASE 22 U/L (12-78); ALBUMIN 3.7 G/DL (3.4-5.0); ALBUMIN/GLOBULIN RATIO 1.4 (1.1-1.5); ALKALINE PHOSPHATASE 55 IU/L (46-116); ANION GAP 10 (8-16); ASPARTATE AMINO TRANSFERASE 22 U/L (10-37); BILIRUBIN,TOTAL 0.6 MG/DL (0.1-1.0); BLOOD UREA NITROGEN 24 MG/DL (7-18); BUN/CREATININE RATIO 24.7 (5.4-32.0); CALCIUM 9.1 MG/DL (8.5-10.1); CHLORIDE 106 MMOL/L (99-107); CREATININE 0.97 MG/DL (0.60-1.10); GLUCOSE 129 MG/DL (70-104); POTASSIUM 4.1 MMOL/L (3.5-5.1); SODIUM 143 MMOL/L (135-145); TOTAL CARBON DIOXIDE 27.5 MMOL/L (24-32); TOTAL PROTEIN 6.4 G/DL (6.4-8.2); eGFR 73 ML/MIN
[2022-02-13] MEDS ORDERED: meclizine 12.5mg tablet PO ONE (10:40)
[2022-02-13] MEDS ORDERED: aspirin 325mg tablet, delayed-release (Ecotrin) PO ONE (10:50)
[2022-02-13 11:04] LABS: D-DIMER 0.51 MG/L FEU (0-0.50)
--- NOTE | 2022-02-13 11:05 | NUR ---
Pt concerned he lost wallet with medical cards. Pt arrived with no wallet upon arrival and med list received was from paperwork from [facility]. [facility] contacted and spoke with Yadiel from [id number]. Report pt med list given to him by fire dept and pt did not come with wallet. Pt and updated on report.
[2022-02-13 11:15] VITALS: BP 141/36
--- NOTE | 2022-02-13 11:22 | NUR ---
pt being taken to [facility]
[2022-02-13] MEDS ORDERED: TRAM50TA2 PO (13:35)
== END 2022-02-13 14:11 | disposition home or self-care (01) ==
LOC: ER 09:16
DX: R42 Dizziness and giddiness (principal); T50.905A Adverse effect of unspecified drugs, medicaments and biological substances, initial encounter; R11.0 Nausea; R77.8 Other specified abnormalities of plasma proteins; M54.89 Other dorsalgia; E78.00 Pure hypercholesterolemia, unspecified; I10 Essential (primary) hypertension; Z98.890 Other specified postprocedural states; Z79.82 Long term (current) use of aspirin; Z79.899 Other long term (current) drug therapy; Y92.89 Other specified places as the place of occurrence of the external cause
CPT/HCPCS: 36415; 71045; 72131; 80053; 83880; 84484; 85025; 85379; 93005; 99285; J7030; J8597

== ENCOUNTER 2022-02-16 07:07 | Emergency (ER) | payer MEDICARE, BC ==
[~2022-02-16] VITALS: Ht 188 cm; Wt 99.1 kg
[~2022-02-16 07:07] MED LIST changes: +TRAM50TA2 PO
[2022-02-16 13:26] LABS: BASOPHILS % (AUTO) 0.6 % (0-1); EOSINOPHILS # (AUTO) 0.2 X10'3 (0-0.9); HEMATOCRIT 38.4 % (42.0-52.0); HEMOGLOBIN 12.9 g/dl (14.0-17.9); LYMPHOCYTES % (AUTO) 16.5 % (21-51); MEAN CORPUSCULAR HEMOGLOBIN 28.8 PG (27.0-31.0); MEAN CORPUSCULAR HGB CONC 33.7 g/dL (33.0-36.5); MEAN CORPUSCULAR VOLUME 85.4 FL (78-98); MEAN PLATELET VOLUME 8.1 FL (7.4-10.4); MONOCYTES # (AUTO) 0.6 X10'3 (0-0.9); MONOCYTES % (AUTO) 9.2 % (2-12); NEUTROPHILS # (AUTO) 4.3 X10'3 (1.8-7.7); NEUTROPHILS % (AUTO) 69.7 % (42-75); PLATELET COUNT 143 X10'3 (140-440); RED BLOOD COUNT 4.49 X10'6 (4.70-6.10); RED CELL DISTRIBUTION WIDTH 13.7 % (11.5-14.5); WHITE BLOOD COUNT 6.1 X10'3 (4.5-11.0)
[2022-02-16 13:36] LABS: ALANINE AMINOTRANSFERASE 22 U/L (12-78); ALBUMIN 3.5 G/DL (3.4-5.0); ALBUMIN/GLOBULIN RATIO 1.3 (1.1-1.5); ALKALINE PHOSPHATASE 53 IU/L (46-116); ASPARTATE AMINO TRANSFERASE 31 U/L (10-37); BLOOD UREA NITROGEN 19 MG/DL (7-18); CALCIUM 9.1 MG/DL (8.5-10.1); CHLORIDE 104 MMOL/L (99-107); CREATININE 0.95 MG/DL (0.60-1.10); GLUCOSE 90 MG/DL (70-104); POTASSIUM 3.4 MMOL/L (3.5-5.1); TOTAL CARBON DIOXIDE 30.7 MMOL/L (24-32); TOTAL PROTEIN 6.1 G/DL (6.4-8.2); eGFR 75 ML/MIN
[2022-02-16 13:40] LABS: ANION GAP 6 (8-16); SODIUM 141 MMOL/L (135-145)
[2022-02-16] MEDS ORDERED: aspirin 81mg tab.chew PO ONE (13:45)
[2022-02-16] MEDS ORDERED: nitroGLYCERIN 0.4mg/hour patch TD ONE (13:45)
[2022-02-16 17:25] VITALS: BP 195/60
== END 2022-02-16 17:26 | disposition home or self-care (01) ==
LOC: ER 07:08
DX: I10 Essential (primary) hypertension (principal); R42 Dizziness and giddiness; E78.00 Pure hypercholesterolemia, unspecified; K21.9 Gastro-esophageal reflux disease without esophagitis; F17.200 Nicotine dependence, unspecified, uncomplicated; Z85.038 Personal history of other malignant neoplasm of large intestine; Z98.890 Other specified postprocedural states; Z72.89 Other problems related to lifestyle; Z79.82 Long term (current) use of aspirin; Z79.899 Other long term (current) drug therapy
CPT/HCPCS: 36415; 80053; 84484; 85025; 93005; 99285